=== PATIENT | female | born 1990 | race Caucasian/White ===

== ENCOUNTER → 2023-11-18 07:49 | Outpatient (REF) | payer BC, SELFPAY | LOC: PNTC 07:49 | PROVIDERS: ATTENDING PHYSICIAN Advanced Practice Midwife | DX: O99.320 Drug use complicating pregnancy, unspecified trimester (principal) | CPT/HCPCS: 36415; 76801; 76813 ==

== ENCOUNTER → 2024-01-14 06:46 | Outpatient (REF) | payer BC, SELFPAY | LOC: PNTC 06:46 | PROVIDERS: ATTENDING PHYSICIAN Advanced Practice Midwife | DX: O35.5XX0 Maternal care for (suspected) damage to fetus by drugs, not applicable or unspecified (principal) | CPT/HCPCS: 76811 ==

== ENCOUNTER 2024-03-15 07:16 | Emergency (ER) | payer BC, SELFPAY ==
[2024-03-15 07:17] VITALS: BP 126/81
--- NOTE | 2024-03-15 08:06 | ED.GENMED ---
History of Present Illness
General
Chief Complaint: Cold/Flu/URI Symptoms
Source: patient
Exam Limitations: none
Time Seen by Provider: 03/15/24 07:32
Nursing documentation reviewed up to this point in time: agreed with
History of Present Illness
History of Present Illness:
Patient with history of asthma, currently 29 weeks , presents to ED secondary to persistent cough, despite taking Robitussin with codeine, as prescribed by her dice person. Denies abdominal pain. Denies vaginal bleeding. Patient does
feel the baby move. Denies fever or chills. Denies vomiting or diarrhea. Denies rash. Denies headache. Patient does report decreased appetite, but has been able to tolerate meals and drinking fluids. 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
children who are currently attending daycare.
Past History
Past History
ED Past Medical History: Asthma and Hypothyroidism
ED Past Surgical History: Tonsilectomy and Other (Thyroid)
Social History
Tobacco: Non-smoker
Living: with family
Family History
Family History: Negative Early CAD
Review of Systems
Review of Systems
Allergies reviewed?: Yes
All Other Systems: ROS reviewed and negative except as documented in HPI and ROS
Constitutional: Reports no symptoms; Denies fever or chills
Respiratory: Reports cough; Denies trouble breathing
Cardiac: Reports no symptoms
ABD/GI: Reports no symptoms; Denies abdominal pain, vomiting or diarrhea
: Reports no symptoms; Denies bleeding
Musculoskeletal: Reports no symptoms
Skin: Reports no symptoms
Neurological: Reports no symptoms
Phy Exam
Physical Exam
Physical Exam:
Physical Exam
General: no apparent distress, not acutely ill. afebrile
Head: nc/at. eomi
Neck: supple. normal range of motion.
Heart: s1/s2 regular rate and rhythm, no murmur. equal radial pulses.
Lungs: no acute respiratory distress. clear bilaterally
Abdomen: normal bowel sounds. not tender.
Neuro: alert and oriented. no focal neurological deficits
Skin: no rash
Psychiatric: well kept. interactive and cooperative
Extremities: no edema. no calf tenderness.
Course
Orders/Labs/Results
Orders:
Orders
03/15/24 07:20
Electrocardiogram (*1) Urgent
Reason for Study: Shortness of Breath
EKG- Treatment ONCE
03/15/24 07:54
Prednisone [Deltasone] 50 mg .ROUTE .STK-MED ONE
03/15/24 08:17
Prednisone [Deltasone] 50 mg PO NOW STA
Vital Signs
Initial and Last Documented VS:
Initial Vital Signs
Temp Pulse Resp BP Pulse Ox
99 F 116 16 126/81 99
03/15/24 07:17 03/15/24 07:17 03/15/24 07:17 03/15/24 07:17 03/15/24 07:17
Last Documented Vital Signs
Temp Pulse Resp BP Pulse Ox
99 F 109 16 123/73 96
03/15/24 07:17 03/15/24 08:18 03/15/24 07:17 03/15/24 08:18 03/15/24 08:18
MDM/Problems Addressed
MDM/Problems Addressed:
Pt with an unremarkable exam with stable vital signs. No evidence of wheezing and without acute respiratory distress. History and exam consistent with likely ongoing viral illness. Pt will be given prescription for short course of prednisone along
with inhaler, to be used as needed. Advised continual evaluation with her technical testing engineer and pmd.
FHR noted. Pt without any abdominal discomfort nor bleeding. Stable for discharge.
*EKG
Interpreted by ED Provider?: Yes
EKG Intrepretation Date: 03/15/24
Heart Rate: 109
Rate: normal
Rhythm: sinus
Flushing: normal axis
*Critical Care Note
Total Time (30-74mins, 75-104mins- exclusive of procedures): Not Applicable
ED Attending Note
-
Portions of this chart may have been created with voice recognition software.� Occasional wrong word or��sound alike� substitutions may have occurred due to the inherent limitations of voice recognition software.
Discharge Plan
Departure
Patient Disposition: Home (Routine Discharge)
Date of Disposition: 03/15/24
Time of Disposition: 08:09
Patient with high blood pressure during this ER visit?: Yes
Discharge Problem:
URI (upper respiratory infection)
Instructions: Viral Upper Respiratory Infection, Adult (DC)
Prescriptions:
New
prednisone 50 mg Tablet
50 mg PO DAILY Qty: 2 0RF
albuterol sulfate [Ventolin HFA] 90 mcg/actuation HFA aerosol inhaler
2 puff inhalation Q6H PRN (Reason: shortness of breath or wheezing) Qty: 8.5 0RF
No Action
PNV cmb#95-ferrous fumarate-FA [] 1 EACH tablet
1 ea PO DAILY
acetaminophen 325 MG tablet
650 mg PO Q4HPRN PRN (Reason: mild pain) 0RF
sennosides-docusate sodium 1 TABLET tablet
1 tab PO DAILYPRN PRN (Reason: constipation) 0RF
ibuprofen 600 MG tablet
600 mg PO Q4HPRN PRN (Reason: moderate pain/cramps) 0RF
Activity Restrictions/Additional Instructions:
As discussed, please follow-up with your primary care physician and/or OB physician with any further concerns. Your prescriptions have been sent electronically to [facility] pharmacy in [place].
Interventions
Interventions:
*Risk Screen - Suicide Last Done: 03/15/24 07:19
*General Assessment Last Done: 03/15/24 08:40
*Neglect/Abuse Screening Last Done: 03/15/24 07:19
ED- Fall Risk Assessment Last Done: 03/15/24 08:40
*ED COVID-19 Vaccine History Last Done: 12/15/24 07:19
*Nursing Disposition Last Done: 03/15/24 08:40
ED- Pulmonary Assessment Last Done: 03/15/24 08:40
Discharge Date and Time
Discharge Date/Time: 03/15/24 08:41
Print Language: MACEDONIAN
[2024-03-15] MEDS: DELTASONE 50 MG PO (08:17)
[2024-03-15 08:18] VITALS: BP 123/73
== END 2024-03-15 08:41 | disposition home or self-care (01) ==
LOC: EMR 07:16
PROVIDERS: EMERGENCY PHYSICIAN Emergency Medicine; FAMILY PHYSICIAN Family Medicine
DX: O99.513 Diseases of the respiratory system complicating pregnancy, third trimester (principal); J06.9 Acute upper respiratory infection, unspecified; J45.909 Unspecified asthma, uncomplicated; B97.89 Other viral agents as the cause of diseases classified elsewhere; O99.283 Endocrine, nutritional and metabolic diseases complicating pregnancy, third trimester; E03.9 Hypothyroidism, unspecified; Z3A.29 29 weeks gestation of pregnancy
CPT/HCPCS: 99283; 93005

== ENCOUNTER → 2024-05-19 13:04 | Outpatient (REF) | payer BC, SELFPAY | LOC: PNTC 13:04 | PROVIDERS: ATTENDING PHYSICIAN Advanced Practice Midwife | DX: O36.8190 Decreased fetal movements, unspecified trimester, not applicable or unspecified (principal) | CPT/HCPCS: 59025; 76815 ==

== ENCOUNTER 2024-05-22 06:50 | Inpatient (IN) | payer BC, SELFPAY ==
[2024-05-22 06:53] VITALS: BMI 33.2
[2024-05-22 07:00] VITALS: BP 140/93
[2024-05-22] MEDS: LR 1000 IV (07:20)
[2024-05-22] MEDS: PITOCIN 30 UNITS/NSS 500 ML IV ×2 (07:21→11:37)
[2024-05-22 07:31] LABS: % Basophils 0.6 % (0-2); % Eosinophils 1.2 % (0-6); % Lymphocytes 17.9 % (20.5-51.1); % Monocytes 6.9 % (1.7-9.3); % Neutrophils 72.4 % (42.2-75.2); Absolute Basophils 0.1 10^3/uL (0-0.2); Absolute Eosinophils 0.2 10^3/uL (0-0.7); Absolute Immature Granulocytes 0.1 10^3/uL (0-0.05); Absolute Lymphocytes 2.2 10^3/uL (1.2-3.4); Absolute Monocytes 0.8 10^3/uL (0.1-0.6); Absolute Neutrophils 8.7 10^3/uL (1.4-6.5); Hematocrit 36.7 % (37.0-47.0); Hemoglobin 12.3 g/dL (12.0-16.0); Mean Corp Hgb Conc. 33.5 g/dL (33.0-37.0); Mean Corpuscular Hgb 29.9 pg (27.0-31.0); Mean Corpuscular Volume 89.1 fL (81.0-99.0); Mean Platelet Volume 9.8 fL (7.4-10.4); Nucleated Red Blood Cells % 0 %; Platelet Count 228 10^3/uL (130-400); Red Blood Cell Count 4.12 10^6/uL (4.20-5.40); Red Cell Dist. Width 14.4 % (11.5-14.5); White Blood Cell Count 12.1 10^3/uL (4.8-10.8)
[2024-05-22] MEDS: FENTANYL/BUPIVACAINE 100 EPIDURAL (09:12)
[2024-05-22] MEDS: SUBLIMAZE 100 MCG EPIDURAL (09:12)
[2024-05-22] MEDS: XYLOCAINE-MPF 1% VIAL 10 ML INFIL (11:43)
[2024-05-22] MEDS: MOTRIN 600 MG PO ×2 (13:10→23:46)
[2024-05-22] MEDS: TYLENOL 650 MG PO ×3 (13:10→23:47)
[2024-05-22] MEDS: TUMS CHEWABLE TABLET 400 MG PO (17:54)
[2024-05-22 20:13] LABS: Hematocrit 33.9 % (37.0-47.0); Hemoglobin 11.2 g/dL (12.0-16.0); Mean Corpuscular Hgb 29.6 pg (27.0-31.0); Mean Corpuscular Volume 89.7 fL (81.0-99.0); Mean Platelet Volume 9.8 fL (7.4-10.4); Platelet Count 205 10^3/uL (130-400); Red Blood Cell Count 3.78 10^6/uL (4.20-5.40); Red Cell Dist. Width 14.4 % (11.5-14.5); White Blood Cell Count 15.5 10^3/uL (4.8-10.8)
[2024-05-22 20:31] LABS: ALT (SGPT) 13 U/L (0-35); AST (SGOT) 25 U/L (14-36); Albumin 3.3 g/dl (3.5-5.0); Alkaline Phosphatase 173 U/L (38-126); Blood Urea Nitrogen 9 mg/dl (7-17); Calcium 9.4 mg/dl (8.4-10.2); Carbon Dioxide 24 mmol/L (22-30); Chloride 103 mmol/L (98-107); Estimated Creatinine Clearance > 125 ml/min; Glucose 128 mg/dl (70-99); Potassium 3.9 mmol/L (3.5-5.1); Sodium 133 mmol/L (135-145); Total Bilirubin 0.6 mg/dl (0.2-1.3); eGFR > 60.00
[2024-05-23] MEDS: TYLENOL 650 MG PO ×3 (04:33→21:44)
[2024-05-23] MEDS: MOTRIN 600 MG PO (12:44)
[2024-05-23] MEDS: TRANDATE 200 MG PO (23:29)
[2024-05-24 06:32] LABS: Hematocrit 32.3 % (37.0-47.0); Hemoglobin 10.7 g/dL (12.0-16.0); Mean Corp Hgb Conc. 33.1 g/dL (33.0-37.0); Mean Corpuscular Volume 90.5 fL (81.0-99.0); Mean Platelet Volume 9.6 fL (7.4-10.4); Platelet Count 211 10^3/uL (130-400); Red Blood Cell Count 3.57 10^6/uL (4.20-5.40); Red Cell Dist. Width 14.5 % (11.5-14.5); White Blood Cell Count 10.1 10^3/uL (4.8-10.8)
[2024-05-24 07:22] LABS: ALT (SGPT) 14 U/L (0-35); AST (SGOT) 23 U/L (14-36); Albumin 3.2 g/dl (3.5-5.0); Alkaline Phosphatase 143 U/L (38-126); Blood Urea Nitrogen 10 mg/dl (7-17); Calcium 8.9 mg/dl (8.4-10.2); Carbon Dioxide 24 mmol/L (22-30); Chloride 101 mmol/L (98-107); Estimated Creatinine Clearance > 125 ml/min; Glucose 85 mg/dl (70-99); Potassium 3.8 mmol/L (3.5-5.1); Sodium 134 mmol/L (135-145); Total Bilirubin 0.6 mg/dl (0.2-1.3); Total Protein 5.8 g/dl (6.3-8.2); eGFR > 60.00
[2024-05-24] MEDS: TRANDATE 200 MG PO (07:47)
[2024-05-24] MEDS: SENOKOT-S 1 TABLET PO (07:47)
[2024-05-24] MEDS: TYLENOL 650 MG PO (07:47)
== END 2024-05-24 09:44 | disposition home or self-care (01) | DRG 807 ==
LOC: LDRP 06:50
PROVIDERS: Student in an Organized Health Care Education/Training Program; ADMITTING PHYSICIAN Obstetrics & Gynecology; ATTENDING PHYSICIAN Advanced Practice Midwife
PROC: 10E0XZZ Delivery of Products of Conception, External Approach (ICD-10-PCS; 2024-05-22)
PROC: 0HQ9XZZ Repair Perineum Skin, External Approach (ICD-10-PCS; 2024-05-22)
PROC: 3E033VJ Introduction of Other Hormone into Peripheral Vein, Percutaneous Approach (ICD-10-PCS; 2024-05-22)
DX: O70.0 First degree perineal laceration during delivery (principal); Z37.0 Single live birth; Z3A.39 39 weeks gestation of pregnancy
CPT/HCPCS: 36415; 80053; 85025; 85027; 86850; 86900; 86901; 87491; 87591

== ENCOUNTER 2024-05-27 22:01 | Inpatient (IN) | payer BC, SELFPAY ==
[2024-05-27 20:35] VITALS: BP 158/98
--- NOTE | 2024-05-27 21:11 | ED.GENMED ---
History of Present Illness
General
Chief Complaint: Problems
Time Seen by Provider: 05/27/24 21:11
History of Present Illness
History of Present Illness:
TIME OF INITIAL ENCOUNTER: 9:15 PM
HPI: Patient presents due to concerns for high blood pressure readings. She gave 5 days ago. Prior to the delivery she did not have high blood pressure. In the hospital, she was getting blood pressure readings that were above 140 and was
placed on labetalol 200 mg twice daily. She was concerned because she had very high blood pressure readings at around 160/100 today. She also had some blurred vision but she relates this to being upset as her best friend earlier this morning
and 2 of her children have issues currently that she is worried about.
EXAM:
GENERAL: Well appearing in no distress, she is hypertensive
HEENT: Moist oral mucosa
CARDIOVASCULAR: No murmurs, normal heart rate, regular rhythm, No chest wall tenderness
PULMONARY: No respiratory distress, breath sounds are clear and equal
ABDOMEN: Soft with no peritoneal signs, no tenderness
NEUROLOGIC: Excellent strength all extremities, no coordination deficits
PSYCHIATRIC: Appropriate mental status, normal insight and judgement
EXTREMITIES: Nontender, no edema, moves all extremities equally
SKIN: No rash, no lesions
NUMBER AND COMPLEXITY OF PROBLEMS ADDRESSED AT THE ENCOUNTER
� Chronic conditions affecting care: Migraines, IBS, thyroid disease
� Acute Exacerbation and/or Progression of Chronic Illness: This is an acute problem
� Differential Diagnosis includes: preeclampsia, hypertension, hypertension, stress/anxiety
AMOUNT AND/OR COMPLEXITY OF DATA TO BE REVIEWED AND ANALYZED
� I performed an independent evaluation of and my interpretation is:
EKG: Sinus 65, normal axis, no acute ST abnormality
CT:
X-rays:
Laboratory Studies: White count 12.7, hemoglobin 11.8, minimal transaminase elevation, no protein in urine, normal creatinine
Other:
� Review of other/old records: I reviewed the notes from the last hospitalization when she gave , the patient is noted to Dr. Riley. She delivered vaginally at 39+ weeks,
� Clinical information was obtained by an independent historian: Spoke to family member at bedside
� Prescriptions/Medications Considered but not given:
� Further testing considered but not performed:
RISK OF COMPLICATIONS AND/OR MORBIDITY OR MORTALITY OF PATIENT MANAGEMENT
� Social determinants of health affecting care: Lives at home
� Discussion with other providers: I discussed case with Dr. He who recommends patient go upstairs for further monitoring as patient did report some blurred vision and a systolic above 160. At Dr. He's request, I also
added a urine protein to creatinine ratio
� Escalation of care including admission/observation vs risk of discharge considered: The patient's blood pressures here have been ranging from 150s to 160s systolic.
ANY OTHER UPDATES:
Past History
Past History
ED Past Medical History: Asthma and Hypothyroidism
ED Past Surgical History: Tonsilectomy and Other (Thyroid)
Social History
Tobacco: Non-smoker
Living: with family
Family History
Family History: Negative Early CAD
Phy Exam
Physical Exam
Physical Exam:
See HPI
Course
Orders/Labs/Results
Orders:
Orders
05/27/24 20:43
EKG [Electrocardiogram (*1)] Urgent
Reason for Study: Hypertension, Benign
05/27/24 20:44
EKG- Treatment ONCE
05/27/24 20:56
Complete Blood Count/With Diff Urgent
Comprehensive Metabolic Panel Urgent
Protein/Creat Ratio (Random) Urgent
Date Specimen was Collected: 05/27/24
Time Specimen was Collected: 20:44
Comment: ADD ON
Urinalysis Reflex To Culture Urgent
Date Specimen was Collected: 05/27/24
Time Specimen was Collected: 20:44
Urine Microscopic Reflex Cult Urgent
Urine Culture Urgent
ROSEMARIE Source: U
Specimen Description:
Date Specimen was Collected: 05/27/24
Time Specimen was Collected: 20:44
05/27/24 21:42
Add On- LAB Urgent
Tests Added?: urine protein creatine ratio
Abnormal Lab Results
05/27/24
20:56
WBC 12.7 H 10^3/uL
(4.8-10.8)
RBC 4.00 L 10^6/uL
(4.20-5.40)
Hgb 11.8 L g/dL
(12.0-16.0)
Hct 36.2 L %
(37.0-47.0)
MCHC 32.6 L g/dL
(33.0-37.0)
RDW 14.6 H %
(11.5-14.5)
Abs Immat Gran (auto) 0.1 H 10^3/uL
(0-0.05)
Absolute Neuts (auto) 8.5 H 10^3/uL
(1.4-6.5)
Absolute Monos (auto) 0.8 H 10^3/uL
(0.1-0.6)
Immature Gran % 0.6 H %
(0-0.5)
AST 39 H U/L
(14-36)
ALT 47 H U/L
(0-35)
Alkaline Phosphatase 149 H U/L
(38-126)
Ur Occult Blood Reflex 4+ A
(Negative)
Leukocyte Esterase Rfl 3+ A
(Negative)
Urine RBC 16-20 A /HPF
(0-2)
Urine WBC (Reflex) 26-30 A /HPF
(0-5)
Urine Bacteria (Reflex) Few A
(Negative)
05/27/24 20:56
05/27/24 20:56
Vital Signs
Initial and Last Documented VS:
Initial Vital Signs
Temp Pulse Resp BP Pulse Ox
36.8 C 80 20 158/98 100
05/27/24 20:35 05/27/24 20:35 05/27/24 20:35 05/27/24 20:35 05/27/24 20:35
Last Documented Vital Signs
Temp Pulse Resp BP Pulse Ox
36.7 C 72 16 161/100 98
05/27/24 22:09 05/27/24 22:09 05/27/24 22:09 05/27/24 22:09 05/27/24 22:09
Information
Weeks gestation: N/A
Location: N/A
*Critical Care Note
Total Time (30-74mins, 75-104mins- exclusive of procedures): Not Applicable
ED Attending Note
-
Portions of this chart may have been created with voice recognition software.� Occasional wrong word or��sound alike� substitutions may have occurred due to the inherent limitations of voice recognition software.
Discharge Plan
Departure
Patient Disposition: LDRP
Date of Disposition: 05/27/24
Time of Disposition: 21:42
Presentation/result/management discussed w/ accepting MD/DO: dr he
Discharge Problem:
hypertension
Interventions
Interventions:
*Risk Screen - Suicide Last Done: 05/27/24 22:08
*General Assessment Last Done: 05/27/24 20:35
*Neglect/Abuse Screening Last Done: 05/27/24 20:35
ED- Fall Risk Assessment Last Done: 05/27/24 22:03
*ED COVID-19 Vaccine History Last Done: 05/27/24 22:08
*Nursing Disposition Last Done: 05/27/24 22:03
ED-Female Genitourinary Assessment Last Done: 05/27/24 21:39
Discharge Date and Time
Discharge Date/Time: 05/27/24 22:04
[2024-05-27 21:12] LABS: % Basophils 0.6 % (0-2); % Eosinophils 4.1 % (0-6); % Immature Granulocytes 0.6 % (0-0.5); % Lymphocytes 21.4 % (20.5-51.1); % Monocytes 6.3 % (1.7-9.3); Absolute Basophils 0.1 10^3/uL (0-0.2); Absolute Eosinophils 0.5 10^3/uL (0-0.7); Absolute Immature Granulocytes 0.1 10^3/uL (0-0.05); Absolute Lymphocytes 2.7 10^3/uL (1.2-3.4); Absolute Monocytes 0.8 10^3/uL (0.1-0.6); Absolute Neutrophils 8.5 10^3/uL (1.4-6.5); Hematocrit 36.2 % (37.0-47.0); Hemoglobin 11.8 g/dL (12.0-16.0); Mean Corp Hgb Conc. 32.6 g/dL (33.0-37.0); Mean Corpuscular Hgb 29.5 pg (27.0-31.0); Mean Corpuscular Volume 90.5 fL (81.0-99.0); Mean Platelet Volume 9.2 fL (7.4-10.4); Nucleated Red Blood Cells % 0 %; Platelet Count 297 10^3/uL (130-400); Red Cell Dist. Width 14.6 % (11.5-14.5); Urine Albumin Negative (Neg - Trace); Urine Bilirubin Negative (Negative); Urine Character Clear (Clear); Urine Color Yellow; Urine Glucose Negative (Negative); Urine Ketone Negative (Negative); Urine Leukocyte 3+ (Negative); Urine Nitrite Negative (Negative); Urine Occult Blood 4+ (Negative); Urine Urobilinogen Negative (Neg - 1+); White Blood Cell Count 12.7 10^3/uL (4.8-10.8)
[2024-05-27 21:20] LABS: ALT (SGPT) 47 U/L (0-35); AST (SGOT) 39 U/L (14-36); Alkaline Phosphatase 149 U/L (38-126); Blood Urea Nitrogen 11 mg/dl (7-17); Calcium 9.9 mg/dl (8.4-10.2); Carbon Dioxide 25 mmol/L (22-30); Chloride 103 mmol/L (98-107); Glucose 91 mg/dl (70-99); Potassium 4.1 mmol/L (3.5-5.1); Sodium 136 mmol/L (135-145); Total Bilirubin 0.6 mg/dl (0.2-1.3); Total Protein 6.7 g/dl (6.3-8.2); eGFR > 60.00
[2024-05-27 21:26] LABS: Urine Bacteria Few (Negative)
[2024-05-27 21:27] LABS: Urine Red Blood Cell 16-20 /HPF (0-2); Urine White Cell 26-30 /HPF (0-5)
[2024-05-27 22:07] VITALS: BMI 31.5
[2024-05-27 22:09] VITALS: BP 161/100
[2024-05-27 23:01] LABS: Protein/creatinine Ratio 0.3; Urine Protein 13 mg/dl
[2024-05-27] MEDS: MAGNESIUM SULFATE 100 IV (23:40)
[2024-05-27] MEDS: TYLENOL 650 MG PO (23:44)
[2024-05-27] MEDS: LR 1000 IV (23:44)
[2024-05-28] MEDS: MAGNESIUM SULFATE 40 GRAM 1000 IV ×2 (00:01→19:03)
[2024-05-28] MEDS: TYLENOL 650 MG PO ×3 (03:55→15:19)
[2024-05-28 06:32] LABS: % Basophils 0.6 % (0-2); % Eosinophils 3.8 % (0-6); % Immature Granulocytes 0.5 % (0-0.5); % Lymphocytes 23.9 % (20.5-51.1); % Monocytes 6.7 % (1.7-9.3); % Neutrophils 64.5 % (42.2-75.2); Absolute Basophils 0.1 10^3/uL (0-0.2); Absolute Eosinophils 0.4 10^3/uL (0-0.7); Absolute Immature Granulocytes 0.1 10^3/uL (0-0.05); Absolute Lymphocytes 2.5 10^3/uL (1.2-3.4); Absolute Monocytes 0.7 10^3/uL (0.1-0.6); Absolute Neutrophils 6.7 10^3/uL (1.4-6.5); Hematocrit 37.3 % (37.0-47.0); Hemoglobin 11.9 g/dL (12.0-16.0); Mean Corp Hgb Conc. 31.9 g/dL (33.0-37.0); Mean Corpuscular Hgb 29.2 pg (27.0-31.0); Mean Corpuscular Volume 91.4 fL (81.0-99.0); Mean Platelet Volume 9.3 fL (7.4-10.4); Nucleated Red Blood Cells % 0 %; Platelet Count 306 10^3/uL (130-400); Red Blood Cell Count 4.08 10^6/uL (4.20-5.40); Red Cell Dist. Width 14.6 % (11.5-14.5); White Blood Cell Count 10.4 10^3/uL (4.8-10.8)
[2024-05-28 06:45] LABS: ALT (SGPT) 45 U/L (0-35); AST (SGOT) 38 U/L (14-36); Albumin 3.6 g/dl (3.5-5.0); Alkaline Phosphatase 162 U/L (38-126); Blood Urea Nitrogen 7 mg/dl (7-17); Calcium 8.6 mg/dl (8.4-10.2); Carbon Dioxide 25 mmol/L (22-30); Chloride 105 mmol/L (98-107); Estimated Creatinine Clearance > 125 ml/min; Glucose 84 mg/dl (70-99); Magnesium 5.9 mg/dl (1.6-2.3); Potassium 3.8 mmol/L (3.5-5.1); Sodium 137 mmol/L (135-145); Total Bilirubin 0.4 mg/dl (0.2-1.3); Total Protein 6.4 g/dl (6.3-8.2); eGFR > 60.00
[2024-05-28] MEDS: MOTRIN 600 MG PO ×3 (08:40→22:13)
[2024-05-28] MEDS: TRANDATE 200 MG PO ×2 (08:41→20:04)
[2024-05-28] MEDS: ZYRTEC 10 MG PO (08:41)
[2024-05-28] MEDS: LR 1000 IV (12:40)
--- NOTE | 2024-05-28 14:35 | CM ---
CM reviewed chart, met with mother, father, additional family bedside with child. Confirmed parents demographics, mother and fathers cellphones confirmed. Mother reports PCP Jackelyn Gan, pharmacy [facility]. Mother reports she has two
children at home, has all supplies needed for baby, [place]. Mother denies any needs from CM at this time. CM will continue to follow for all discharge planning needs.
Plan; home with family, no needs.
[2024-05-29] MEDS: TYLENOL 650 MG PO (04:13)
[2024-05-29 06:35] LABS: Hematocrit 34.9 % (37.0-47.0); Hemoglobin 11.4 g/dL (12.0-16.0); Mean Corp Hgb Conc. 32.7 g/dL (33.0-37.0); Mean Corpuscular Hgb 29.5 pg (27.0-31.0); Mean Corpuscular Volume 90.4 fL (81.0-99.0); Mean Platelet Volume 9.1 fL (7.4-10.4); Platelet Count 283 10^3/uL (130-400); Red Blood Cell Count 3.86 10^6/uL (4.20-5.40); Red Cell Dist. Width 14.6 % (11.5-14.5); White Blood Cell Count 10.8 10^3/uL (4.8-10.8)
[2024-05-29 07:44] LABS: ALT (SGPT) 34 U/L (0-35); AST (SGOT) 24 U/L (14-36); Albumin 3.3 g/dl (3.5-5.0); Alkaline Phosphatase 146 U/L (38-126); Blood Urea Nitrogen 9 mg/dl (7-17); Calcium 6.8 mg/dl (8.4-10.2); Carbon Dioxide 24 mmol/L (22-30); Chloride 104 mmol/L (98-107); Estimated Creatinine Clearance 115 ml/min; Glucose 73 mg/dl (70-99); Sodium 136 mmol/L (135-145); Total Bilirubin 0.6 mg/dl (0.2-1.3); Total Protein 5.9 g/dl (6.3-8.2); eGFR > 60.00
[2024-05-29] MEDS: ZYRTEC 10 MG PO (08:07)
[2024-05-29] MEDS: VALTREX 500 MG PO (08:08)
[2024-05-29] MEDS: TRANDATE 400 MG PO (08:08)
[2024-05-29] MEDS: MOTRIN 600 MG PO (11:44)
== END 2024-05-29 16:50 | disposition home or self-care (01) | DRG 776 ==
LOC: LDRP 22:01
PROVIDERS: Emergency Medicine; Student in an Organized Health Care Education/Training Program; ADMITTING PHYSICIAN Obstetrics & Gynecology; EMERGENCY PHYSICIAN Emergency Medicine; FAMILY PHYSICIAN Advanced Practice Midwife
DX: O14.15 Severe pre-eclampsia, complicating the puerperium (principal); O98.52 Other viral diseases complicating childbirth; B00.1 Herpesviral vesicular dermatitis
CPT/HCPCS: 80053; 81003; 81015; 82570; 83735; 84156; 84443; 85025; 85027; 87086; 93005; 99284

== ENCOUNTER 2024-06-07 15:49 | Observation (INO) | payer BC, SELFPAY ==
[2024-06-07 15:57] VITALS: BP 178/94; BMI 29.8
[2024-06-07] MEDS: TRANDATE 20 MG IV (16:28)
[2024-06-07 16:36] LABS: Hematocrit 40.5 % (37.0-47.0); Mean Corp Hgb Conc. 32.1 g/dL (33.0-37.0); Mean Corpuscular Hgb 29.7 pg (27.0-31.0); Mean Corpuscular Volume 92.7 fL (81.0-99.0); Mean Platelet Volume 9.4 fL (7.4-10.4); Platelet Count 325 10^3/uL (130-400); Red Blood Cell Count 4.37 10^6/uL (4.20-5.40); Red Cell Dist. Width 13.6 % (11.5-14.5); White Blood Cell Count 10.3 10^3/uL (4.8-10.8)
[2024-06-07 16:37] LABS: Urine Albumin Negative (Neg - Trace); Urine Bilirubin Negative (Negative); Urine Character Slightly Cloudy (Clear); Urine Color Yellow; Urine Glucose Negative (Negative); Urine Ketone Negative (Negative); Urine Leukocyte 3+ (Negative); Urine Nitrite Negative (Negative); Urine Occult Blood 4+ (Negative); Urine Urobilinogen Negative (Neg - 1+)
[2024-06-07 16:47] LABS: Urine Bacteria Few (Negative)
[2024-06-07] MEDS: TRANDATE 40 MG IV (16:50)
[2024-06-07 16:59] LABS: Protein/creatinine Ratio 0.3; Urine Protein 14 mg/dl
[2024-06-07 17:00] LABS: ALT (SGPT) 20 U/L (0-35); AST (SGOT) 20 U/L (14-36); Albumin 4.1 g/dl (3.5-5.0); Alkaline Phosphatase 105 U/L (38-126); Blood Urea Nitrogen 15 mg/dl (7-17); Calcium 9.9 mg/dl (8.4-10.2); Carbon Dioxide 23 mmol/L (22-30); Chloride 106 mmol/L (98-107); Estimated Creatinine Clearance 99 ml/min; Glucose 105 mg/dl (70-99); Potassium 4.4 mmol/L (3.5-5.1); Sodium 139 mmol/L (135-145); Total Bilirubin 0.3 mg/dl (0.2-1.3); Uric Acid 6.3 mg/dl (2.5-6.2); eGFR > 60.00
[2024-06-07] MEDS: LR 1000 IV (17:20)
[2024-06-07] MEDS: MAGNESIUM SULFATE 100 IV (17:27)
[2024-06-07] MEDS: MAGNESIUM SULFATE 40 GRAM 1000 IV (17:50)
[2024-06-07] MEDS: PROCARDIA XL (EXTENDED RELEASE) 30 MG PO (17:58)
[2024-06-07] MEDS: TRANDATE 400 MG PO (20:05)
[2024-06-07] MEDS: PROCARDIA XL (EXTENDED RELEASE) PO (22:00)
[2024-06-08] MEDS: MOTRIN 600 MG PO ×3 (00:21→20:25)
[2024-06-08 04:01] LABS: Magnesium 7.2 mg/dl (1.6-2.3)
--- NOTE | 2024-06-08 07:50 | CON.CAR ---
Addendum entered and electronically signed by Dimas Covington MD 06/08/24 09:26:
I saw and examined the patient.
The EXTERNAL GRINDER TOOL's note was reviewed and I agree with the note.
33-year-old female , who is after having her third child . Patient had preeclampsia and was maintained on labetalol. At home was on labetalol 400 twice daily but presented with hypertension arrival blood pressure 178/94.
Patient received additional IV labetalol, IV magnesium and a dose of nifedipine XL yesterday evening systolic blood pressure this morning 104. Morning dose of labetalol held.
Past medical history also notable for asthma, IBS and a history of thyroid disease (prior hyperthyroidism and partial thyroidectomy ). Patient currently feeling well with no complaints of chest pain shortness of breath palpitations lightheadedness
or dizziness. ECG sinus rhythm with QTc 488.
-Hypertension has been improved. Patient received night nifedipine last evening and some additional IV labetalol. Will need to be cautious that we do not overtreat her blood pressure. Would reassess blood pressure later this morning and make
determination regarding labetalol dosing.
-Prolonged QTc likely consistent IV magnesium and hyper magnesium. Can monitor with follow-up ECGs
Original Note:
Consultation
Consultation Request
Date/Time Consultation Requested: 06/07/2024 17:41
Date/Time Consultation Performed: 06/08/2024 07:50
Requesting Provider: Dr. Norwood
Performing Provider: FAITH Barajas for Dr. Covington
Reason for Consultation: HTN
Medical History
-
Chief Complaint: Elevated BP
History of Present Illness:
Veronica Rogle is a 33-year-old female (seen by Dr. Bradford in 2013), with asthma, hyperthyroidism (resolved status post partial right thyroidectomy), IBS, and anxiety who presented to the emergency department with a chief complaint of elevated
blood pressure at home. She delivered her son 05/22/2024 with preeclampsia with severe features. She presented back with elevated blood pressures at home. On arrival to [facility], BP 178/94 with a heart rate of 58. Cardiology was consulted for blood
pressure management.
Past Medical History
Past Medical History: Asthma, Hyperthyroidism (s/p R thyroidectomy), Psychiatric (Anxiety) and Other (IBS)
Past Surgical History: Other (Thyroidectomy [partial], adenoidectomy)
Social History
Tobacco: Non-Smoker
Alcohol: None
Drug: None
Personal:
Living: With Family
Employment: Employed
Family History
Family History: Reviewed & Not Pertinent (Denies pre-mature CAD and SCD.)
Allergies / Home Medications
Allergy/AdvReac Type Severity Reaction Status Date / Time
Penicillins Allergy Hives Verified 05/27/24 22:13
�Medication �Instructions �Recorded �Confirmed �Type
cetirizine 10 mg tablet (Zyrtec) 10 mg PO DAILY 05/27/24 06/07/24 History
prenat.vits,bird,ire-wfbn-yzahl 1 tab PO DAILY 05/27/24 06/07/24 History
labetalol 200 mg tablet 400 mg (2 x 200 mg) PO BID #60 tabs 05/29/24 06/07/24 Rx
Review of Systems
-
History Source: Patient
All other systems: Negative unless noted
Constitutional: Fatigue
EENT: No Symptoms
Respiratory: No Symptoms
Cardiac: No Symptoms
Abdomen/GI: No Symptoms
: No Symptoms
Musculoskeletal: No Symptoms
Skin: No Symptoms
Neurological: Headache and Weakness
Endocrine: No Symptoms
Hematologic/Lymphatic: No Symptoms
Physical Exam
Vital Signs
Temp Pulse Resp BP
97.7 F 67 18 141/80
06/07/24 15:57 06/07/24 20:05 06/07/24 15:57 06/07/24 20:05
Lab Results
06/07/24 16:19
06/07/24 16:19
Physical Exam
General: Well Developed, Well Nourished, No Apparent Distress and Comfortable
HEENT: Normocephalic, Anicteric and Moist Mucous Membranes
Respiratory: Clear
Cardiac: S1/S2 and Regular Rhythm
Breast: Deferred by me
GI: Soft, Non Tender, Non Distended and Normal Bowel Sounds
Rectal: Deferred by Provider
Genito-urinary: No Costovertebral Tender
Musculoskeletal: No Clubbing, No Cyanosis and No Edema
Skin: Warm and Dry
Neuro: AO x 3
Hematologic/Lymphatic: No Lymphadenopathy
Psych: Calm
Impression / Plan
-
IMPRESSION/PLAN: 33F with asthma, hyperthyroidism (resolved status post partial right thyroidectomy), IBS, and anxiety who presented to the emergency department with a chief complaint of elevated blood pressure at home. She delivered her son
05/22/2024 & had with preeclampsia with severe features. She presented back with elevated blood pressures at home.
Prior Coal Sampler: Dr. Bradford
hypertension
-First admission 05/27/24 -> Mg gtt x 24H & started on Labetalol (HTN, blurry vision, elevated LFTs, & LE edema)
-Started on nifedipine 30 mg last evening with soft BP
-Labetalol held this morning, she may need to decrease to 100mg BID, Q2H BPs
-SBP goal <135, DBP goal <85
Status post spontaneous vaginal delivery 05/22/2024 at 39/1 weeks gestation
Prolonged QTc, update EKG
Data Reviewed
-
EKG: Report Reviewed by me
Labs: Labs Reviewed by me
Old Records: Reviewed
[2024-06-08] MEDS: TRANDATE PO (08:16)
[2024-06-08] MEDS: PRENATAL PLUS 1 TABLET PO (09:04)
[2024-06-08] MEDS: TYLENOL 1000 MG PO (15:51)
[2024-06-08] MEDS: TRANDATE 100 MG PO (16:18)
[2024-06-08] MEDS: PROCARDIA XL (EXTENDED RELEASE) 30 MG PO (22:02)
[2024-06-09] MEDS: MOTRIN 600 MG PO (06:02)
[2024-06-09] MEDS: TRANDATE 100 MG PO (07:31)
[2024-06-09] MEDS: PRENATAL PLUS 1 TABLET PO (07:31)
--- NOTE | 2024-06-09 09:01 | W.PN.CD ---
Today's Communication / Plan
-
Discharge regimen: Labetalol 100 mg twice daily (8 AM and 8 PM), nifedipine 30 mg once daily (3 PM)
Goal BP <140/90
Our office will call her with a follow-up appointment in 2-4 weeks
Impression / Plan
-
IMPRESSION/PLAN: 33F with asthma, hyperthyroidism (resolved status post partial right thyroidectomy), IBS, and anxiety who presented to the emergency department with a chief complaint of elevated blood pressure at home. She delivered her son
05/22/2024 & had with preeclampsia with severe features. She presented back with elevated blood pressures at home.
Prior Telegraphic Typewriter Operator Chief: Dr. Bradford
hypertension
-First admission 05/27/24 -> Mg gtt x 24H & started on Labetalol (HTN, blurry vision, elevated LFTs, & LE edema)
-Discharge regimen: Labetalol 100 mg twice daily (8 AM and 8 PM), nifedipine 30 mg once daily (3 PM)
-Goal BP <140/90
-Our office will call her with a follow-up appointment in 2-4 weeks
Status post spontaneous vaginal delivery 05/22/2024 at 39/1 weeks gestation
Prolonged QTc, avoid QT prolonging meds
Subjective: Feels well this morning. Ready to go home.
Physical Exam
Vital Signs/Labs
Vital Signs
Temp Pulse Resp BP
97.7 F 73 18 120/78
06/07/24 15:57 06/09/24 07:31 06/07/24 15:57 06/09/24 07:31
06/08/24 06/09/24 06/10/24
06:59 06:59 06:59
Actual Weight 86.183 kg
06/07/24 16:19
06/07/24 16:19
Magnesium 7.2 mg/dl (1.6-2.3) H* 06/08/24 03:16
Physical Exam
Constitutional: No acute distress and Comfortable
Cardiovascular: Rhythm & rate is regular, Pedal edema is absent, S1S2 is normal and Murmur/rub/gallop absent
Respiratory: Respiratory effort normal and Lungs clear to auscul.
Neuro/Psych: AO x 3
Data Reviewed
-
Date of Service: June 09, 2024
Medical Decision Making: Reviewed Test Results, Independent Historian Assessment, Test Interpretation and Review of Case with other Provider
EKG: Tracing Personally Visualized and interpreted
Labs: Labs Reviewed by me
== END 2024-06-09 10:07 | disposition home or self-care (01) ==
LOC: LDRP 15:49
PROVIDERS: ADMITTING PHYSICIAN Obstetrics & Gynecology; OTHER PHYSICIAN Internal Medicine Cardiovascular Disease
DX: O14.15 Severe pre-eclampsia, complicating the puerperium (principal); R51.9 Headache, unspecified; R20.2 Paresthesia of skin; J45.909 Unspecified asthma, uncomplicated; K58.9 Irritable bowel syndrome, unspecified; R94.31 Abnormal electrocardiogram [ECG] [EKG]; F41.9 Anxiety disorder, unspecified; H53.8 Other visual disturbances; R79.89 Other specified abnormal findings of blood chemistry; Z79.899 Other long term (current) drug therapy; Z88.0 Allergy status to penicillin; Z82.49 Family history of ischemic heart disease and other diseases of the circulatory system; Z90.89 Acquired absence of other organs
CPT/HCPCS: 80053; 81003; 81015; 82570; 83735; 84156; 84550; 85027; 93005